=== PATIENT | male | born 1970 | race Caucasian/White ===

== ENCOUNTER 2016-05-06 05:01 | Observation (INO) | payer BC ==
[2016-05-06] MEDS ORDERED: Aspirin Low Dose CHEW TAB* 81 MG PO ONE (05:20)
[2016-05-06] MEDS ORDERED: NS 0.9% 1000 ML* 2,000 ML IV ONE (05:36)
[2016-05-06 05:47] LABS: Hematocrit 42 % (42-52); Hemoglobin 14.4 g/dl (14.0-18.0); Mean Corpuscular HGB Conc 35 g/dl (31-36); Mean Corpuscular Hemoglobin 30 pg (27-31); Mean Corpuscular Volume 86 fL (80-94); Mean Platelet Volume 9 um3 (7.4-10.4); Red Blood Count 4.86 10^6/ul (4.0-5.4); Red Cell Distribution Width 14 % (10.5-15); White Blood Count 6.1 10^3/ul (3.5-10.8)
[2016-05-06] MEDS ORDERED: Acetaminophen TAB* 325 MG PO ONE (05:47)
[2016-05-06 06:00] LABS: BUN/Creatinine Ratio 8.7 (8-20); Calcium 8.8 mg/dL (8.6-10.3); EGFR African American 100.4 (>60); EGFR Non-African American 78.1 (>60); Globulin 3.1 g/dL (2-4); Potassium 3.6 mmol/L (3.5-5.0); Total Bilirubin 0.4 mg/dL (0.2-1.0); Total Protein 7.1 g/dL (6.4-8.9)
--- NOTE | 2016-05-06 07:11 | ED ---
Gallo Murcia Aidan, scribed for Acosta Ramirez MD on 05/06/16 at 0543 . 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 According to the patient, just prior to the event, he felt nauseous, dizzy, and had a WEIR described as the feeling of a sinusitis. The next thing he could recall was waking up on the floor to his standing over him. According to his , she woke up to the sound of him hitting the floor and rushed into the bathroom where he fell. When she reached the bathroom, she found him on the ground shaking, making strange noises, vomiting, and presenting with a distorted face. While unconscious, he urinated. Associated symptoms include diffuse body aches. Currently, he still has the WEIR. Pt denies any CP, difficulty breathing, or diarrhea. He is unaware for the duration of his LOC. Lastly, he is eating and drinking normally and denies any Hx of seizures. - History Of Current Complaint Chief Complaint: EDSyncope Time Seen by Provider: 05/06/16 05:20 Hx Obtained From: Patient, Family/Information Technology Program Manager - Onset/Duration: Sudden Onset, Lasting Minutes, Resolved Timing: Intermittent Episode Lasting Context: Unwitnessed, Loss Of Consciousness Activity At Onset: Other - just about to use the bathroom Associated Head Trauma: No Aggravating Factor(s): Other - unknown Alleviating Factor(s): Other - unknown Associated Signs And Symptoms: Dizzy - during onset, Headache, Other - nausea during onset, urinary incontinence while unconscious, vomiting, distorted face while unconscious, made strange noises and was shaking while unconscious Frequency: Episodes x___ - 1 - Allergies/Home Medications Allergies/Adverse Reactions: Allergies Allergy/AdvReac Type Severity Reaction Status Date / Time peanuts Allergy Anaphylatic Uncoded 03/26/14 07:11 Shock tree nuts Allergy Anaphylatic Uncoded 03/26/14 07:11 Shock PMH/Surg Hx/FS Hx/Imm Hx Cardiovascular History: Denies: Hx Hypertension - [place] Respiratory History: Reports: Hx Asthma - hX of, no xS years, carries inhaler - Cancer History Cancer Type, Location and Year: Melanoma-12yrs ago - Surgical History Surgery Procedure, Year, and Place: 2004 RIGHT INGUINAL HERNIA REPAIR [place]. 1984 EAR TUBES [place]. 1979 TONSILLECTOMY [place] Hx Anesthesia Reactions: No Infectious Disease History: No Infectious Disease History: Denies: Traveled Outside the [place] in Last 30 Days - Family History Known Family History: Positive: Other - no FHX of seizure disorders - Social History Occupation: Employed Full-time Lives: With Family Alcohol Use: Occasionally Alcohol Amount: 2-3 DRINKS/WEEK Substance Use Type: Reports: None Smoking Status (MU): Never Smoked Tobacco Have You Smoked in the Last Year: No Review of Systems Negative: Fever, Chills, Fatigue, Skin Diaphoresis Negative: Photophobia, Blurred Vision, Diplopia, Drainage, Erythema Negative: Epistaxis, Dental Pain, Sore Throat, Ear Ache, Nasal Discharge Negative: Palpitations, Chest Pain Negative: Shortness Of Breath, Cough Positive: Vomiting, Nausea. Negative: Abdominal Pain, Diarrhea Positive: incontinence - urinary, while unconscious. Negative: see HPI, burning , dysuria, discharge, frequency, flank pain, hematuria, pain, urgency Negative: Arthralgia, Myalgia, Decreased ROM, Edema Negative: Rash, Bruising Neurological: Other - dizziness, LOC, shaking while unconscious, making strange noises while unconscious Positive: Headache, Syncope. Negative: Weakness, Paresthesia, Numbness, Slurred Speech Negative: Anxious, Depressed All Other Systems Reviewed And Are Negative: Yes Physical Exam - Summary Physical Exam Summary: Constitutional: Well-developed, Well-nourished, Alert. (-) Distressed Skin: Warm, Dry HENT: Eyes: Conjunctiva normal Neck: Musculoskeletal ROM normal neck. (-) JVD, (-) Stridor, (-) Tracheal deviation Cardio: Rhythm regular, rate normal, Heart sounds normal; Intact distal pulses ; The pedal pulses are 2+ and symmetric. Radial pulses are 2+ and symmetric. (- ) Murmur Pulmonary/Chest wall: Effort normal. (-) Respiratory distress, (-) Wheezes, (-) Rales Abd: Soft. (-) Tenderness, (-) Distension, (-) Guarding, (-) Rebound Musculoskeletal: (-) Edema Lymph: (-) Cervical adenopathy Neuro: Alert, Oriented x3, Strength normal, Cranial nerves II-XII are grossly intact. (-) Dysmetria, (-) Nystagmus, (-) Ataxia by finger to nose testing, (-) Sensory deficit. Psych: Mood and affect Normal Triage Information Reviewed: Yes Vital Signs On Initial Exam: Initial Vitals Temp Pulse Resp BP Pulse Ox 99.5 F 90 20 133/90 98 05/06/16 05:03 05/06/16 05:03 05/06/16 05:03 05/06/16 05:03 05/06/16 05:03 Vital Signs Reviewed: Yes Diagnostics - Vital Signs Vital Signs Temp Pulse Resp BP Pulse Ox 05/06/16 05:03 99.5 F 90 20 133/90 98 - Laboratory Lab Results: Lab Results 05/06/16 05/06/16 05/06/16 Range/Units 05:40 05:40 05:40 WBC 6.1 (3.5-10.8) 10^3/ul RBC 4.86 (4.0-5.4) 10^6/ul Hgb 14.4 (14.0-18.0) g/dl Hct 42 (42-52) % MCV 86 (80-94) fL MCH 30 (27-31) pg MCHC 35 (31-36) g/dl RDW 14 (10.5-15) % Plt Count 173 (150-450) 10^3/ul MPV 9 (7.4-10.4) um3 Neut % (Auto) 67.4 (38-83) % Lymph % (Auto) 17.4 L (25-47) % [place] % (Auto) 14.0 H (1-9) % Eos % (Auto) 0.5 (0-6) % Baso % (Auto) 0.7 (0-2) % Absolute Neuts (auto) 4.1 (1.5-7.7) 10^3/ul Absolute Lymphs (auto) 1.1 (1.0-4.8) 10^3/ul Absolute Monos (auto) 0.8 (0-0.8) 10^3/ul Absolute Eos (auto) 0 (0-0.6) 10^3/ul Absolute Basos (auto) 0 (0-0.2) 10^3/ul Absolute Nucleated RBC 0 10^3/ul Nucleated RBC % 0 Sodium 133 (133-145) mmol/L Potassium 3.6 (3.5-5.0) mmol/L Chloride 101 (101-111) mmol/L Carbon Dioxide 26 (22-32) mmol/L Anion Gap 6 (2-11) mmol/L BUN 9 (6-24) mg/dL Creatinine 1.03 (0.67-1.17) mg/dL Est GFR ( Amer) 100.4 (>60) Est GFR (Non-Af Amer) 78.1 (>60) BUN/Creatinine Ratio 8.7 (8-20) Glucose 109 H (70-100) mg/dL Lactic Acid 0.7 (0.5-2.0) mmol/L Calcium 8.8 (8.6-10.3) mg/dL Total Bilirubin 0.40 (0.2-1.0) mg/dL AST 36 (13-39) U/L ALT 39 (7-52) U/L Alkaline Phosphatase 47 (34-104) U/L Troponin I 0.00 (<0.04) ng/mL Total Protein 7.1 (6.4-8.9) g/dL Albumin 4.0 (3.2-5.2) g/dL Globulin 3.1 (2-4) g/dL Albumin/Globulin Ratio 1.3 (1-3) Result Diagrams: 05/06/16 05:40 05/06/16 05:40 Lab Statement: Any lab studies that have been ordered have been reviewed, and results considered in the medical decision making process. - CT BRAIN CT CT Interpretation: No Acute Changes - IMPRESSION: NO ACUTE PARANASAL ABNORMALITY. NO HEMMORRHAGE, MASS OR ACUTE TERRITORIAL INFARCT. NO SKULL FRACTURE. MUCOPERIOSTEAL THICKENING PARANASAL SINUSES. MINIMAL FLUID RIGHT MAXILLARY SINUS. VISUALIZED MASTOID AIR CELLS CLEAR. CT Interpretation Completed By: Radiologist - CORE LOADER - EKG EKG 0529 Cardiac Rate: NL - 89 BPM EKG Rhythm: Sinus Rhythm EKG Interpretation: NO STEMI, NO ECTOPY Course/Dx Course Of Treatment: D/W DR SIERRA @ 0710. PATIENT NOW FEBRILE, FLU SWAB PENDING - Diagnoses Provider Diagnoses: Syncopal seizure, Fever, Flu-like symptoms Discharge - Discharge Plan Condition: Fair Disposition: ADMITTED TO [facility] documentation as recorded by the Gallo yancey Aidan accurately reflects the service I personally performed and the decisions made by me, Acosta Ramirez MD.
--- NOTE | 2016-05-06 08:44 | RAD ---
Indication: Syncope. CT of the brain was performed without IV contrast. Ventricular structures are midline. No midline shift is noted. The extra-axial spaces are unremarkable. There is no evidence of intracranial mass or hemorrhage. No other high or low density lesions are identified. Mastoid air cells and paranasal sinuses demonstrates air-fluid level in the right maxillary sinus consistent with right sided maxillary sinusitis. Mastoid air cells are otherwise unremarkable. IMPRESSION: NO INTRACRANIAL MASS OR HEMORRHAGE IS NOTED. AIR-FLUID LEVEL IN THE RIGHT MAXILLARY SINUSES.
--- NOTE | 2016-05-06 08:45 | RAD ---
Indication: Syncope. 2 views of the chest including dual energy PA views demonstrates no mediastinal shift. Heart is of normal size and configuration. Lung sadler demonstrate no pleural fluid, pneumonia or pneumothorax. IMPRESSION: No active cardiopulmonary disease is noted.
[2016-05-06] MEDS ORDERED: Ondansetron ODT TAB* 4 MG SL PRN (08:54)
[2016-05-06] MEDS ORDERED: Acetaminophen TAB* 325 MG PO PRN (08:54)
[2016-05-06] MEDS ORDERED: Oseltamivir CAP* 75 MG PO SCH (09:00)
--- NOTE | 2016-05-06 09:08 | ADMNOTE ---
Subjective Date of Service: 05/06/16 Interval History: ADMISSION HISTORY AND PHYSICAL EXAM: Allergies Allergy/AdvReac Type Severity Reaction Status Date / Time peanuts Allergy Anaphylatic Uncoded 03/26/14 07:11 Shock tree nuts Allergy Anaphylatic Uncoded 03/26/14 07:11 Shock Home Medications Medication Instructions Recorded Confirmed Type EPINEPHrine PEN ADULT(NF) [Epipen 0.3 mg INJ SEE INSTRUCTIONS 03/16/14 03/26/14 History ADULT*] Proair Hfa 1 puff PO Q6H PRN 03/16/14 03/26/14 History HPI: Patient became ill with myalgias on 05/04, flet he had a fever. He was seen in Urgent Care 05/05 and told he had the flu . He declined oseltamivir. This AM at 4 AM he awoke to go to the BR. He urinated, then felt dizzy and nauseated. He does not remember falling. His heard him fall and ran into the BR and found him seizing and unresponsive. She started to call 911 but then the pt awoke. At first he was a little confused, thought he had fallen asleep on the floor. In a minute or two he was thinking clearly. He had emesis. She drove him here. He has had dizzy spells in the past when he was nauseous. Family History: Findings - Father had DM. 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 LOives withe his who is his SDM. Never smoked, no alcohol abuse. Past Medical History: Findings - BL HR, L artificial ear drum Review of Systems - Review of Systems Constitutional Symptoms: Negative: Weight Gain, Weight Loss, Weakness, Fatigue, Fever, Night Sweats, Unexplained Falls, Other Dermatology: Positive: Normal HEENT: Positive: Normal Eyes: Positive: Normal Thyroid: Positive: Normal Pulmonary: Positive: Normal Cardiology: Positive: Faintness, Syncope Gastroenterology: Positive: Vomiting Genital - Urinary: Positive: Normal Genitourinary - Male: Negative: Prostatism, Erectile Dysfunction, Family Hx of Prostate Cancer, Other Musculoskeletal: Negative: Joint Pain, Joint Stiffness, Arthritis, Osteoporosis, Low Back Pain , Sciatica, Joint Deformities, Kyphoscoliosis, Other Endocrinology: Positive: Normal Neurology: Positive: Normal Psychiatry: Positive: Normal Allergic/Immunologic: Negative: Hx Anaphylaxis, Hx Angioedema, Hx Environmental, Hx Seasonal, Athsma, Hx HIV, Immunocompromise, Swollen Glands LymphNodes, Other Objective Active Medications: Acetaminophen (Tylenol Tab*) 650 mg PO Q4H PRN PRN Reason: TEMP GREATER THAN 101.5 F Ondansetron HCl (Zofran Odt Tab*) 4 mg SL Q6H PRN PRN Reason: NAUSEA/VOMITING Oseltamivir Phosphate (Tamiflu Cap*) 75 mg PO BID SANJAY Stop: 05/10/16 21:01 Vital Signs 05/06/16 05/06/16 05/06/16 07:50 08:04 08:24 Temperature 100.6 F Pulse Rate 92 91 Respiratory 16 17 Rate Blood Pressure 127/82 (mmHg) O2 Sat by Pulse 97 95 Oximetry Oxygen Devices in Use Now: None Appearance: Alert, supine on ED stretcher. In good spirits. Looks comfortable. Eyes: No Scleral Icterus Ears/Nose/Mouth/Throat: Clear Oropharnyx, Mucous Membranes Moist Neck: NL Appearance and Movements; NL JVP, No Thyroid Enlargement, Masses Respiratory: Symmetrical Chest Expansion and Respiratory Effort, Clear to Auscultation, Clear to Percussion Cardiovascular: NL Sounds; No Murmurs; No JVD, RRR, No Edema, - Abdominal: NL Sounds; No Tenderness; No Distention, No Hepatosplenomegaly, - Extremities: No Edema, No Clubbing, Cyanosis, - Skin: No Rash or Ulcers, No Nodules or Sclerosis, - Neurological: Alert and Oriented x 3, NL Sensation Result Diagrams: 05/06/16 05:40 05/06/16 05:40 Additional Lab and Data: Lab Results 05/06/16 05/06/16 05/06/16 Range/Units 05:40 05:40 05:40 WBC 6.1 (3.5-10.8) 10^3/ul RBC 4.86 (4.0-5.4) 10^6/ul Hgb 14.4 (14.0-18.0) g/dl Hct 42 (42-52) % MCV 86 (80-94) fL MCH 30 (27-31) pg MCHC 35 (31-36) g/dl RDW 14 (10.5-15) % Plt Count 173 (150-450) 10^3/ul MPV 9 (7.4-10.4) um3 Neut % (Auto) 67.4 (38-83) % Lymph % (Auto) 17.4 L (25-47) % [place] % (Auto) 14.0 H (1-9) % Eos % (Auto) 0.5 (0-6) % Baso % (Auto) 0.7 (0-2) % Absolute Neuts (auto) 4.1 (1.5-7.7) 10^3/ul Absolute Lymphs (auto) 1.1 (1.0-4.8) 10^3/ul Absolute Monos (auto) 0.8 (0-0.8) 10^3/ul Absolute Eos (auto) 0 (0-0.6) 10^3/ul Absolute Basos (auto) 0 (0-0.2) 10^3/ul Absolute Nucleated RBC 0 10^3/ul Nucleated RBC % 0 Sodium 133 (133-145) mmol/L Potassium 3.6 (3.5-5.0) mmol/L Chloride 101 (101-111) mmol/L Carbon Dioxide 26 (22-32) mmol/L Anion Gap 6 (2-11) mmol/L BUN 9 (6-24) mg/dL Creatinine 1.03 (0.67-1.17) mg/dL Est GFR ( Amer) 100.4 (>60) Est GFR (Non-Af Amer) 78.1 (>60) BUN/Creatinine Ratio 8.7 (8-20) Glucose 109 H (70-100) mg/dL Lactic Acid 0.7 (0.5-2.0) mmol/L Calcium 8.8 (8.6-10.3) mg/dL Total Bilirubin 0.40 (0.2-1.0) mg/dL AST 36 (13-39) U/L ALT 39 (7-52) U/L Alkaline Phosphatase 47 (34-104) U/L Troponin I 0.00 (<0.04) ng/mL Total Protein 7.1 (6.4-8.9) g/dL Albumin 4.0 (3.2-5.2) g/dL Globulin 3.1 (2-4) g/dL Albumin/Globulin Ratio 1.3 (1-3) Microbiology and Other Data: Microbiology 05/06/16 07:49 Influenza Types A,B Antigen ([facility]) - Final Nasal Specimen received for Influenza A/B Molecular testing Assess/Plan/Problems-Billing Assessment: - Patient Problems (1) Convulsive syncope Current Visit: Yes Status: Acute Code(s): R55 - SYNCOPE AND COLLAPSE SNOMED Code(s): 029933650 Comment: Pt advised to lay down flat on the floor when he gets lightheaded, also to keep himself hydrated especially when he is ill or has a fever. (2) Influenza B Current Visit: Yes Status: Acute Code(s): J10.1 - FLU DUE TO OTH IDENT INFLUENZA VIRUS W OTH RESP MANIFEST SNOMED Code(s): 07552755 Comment: Start oseltamivir as this is his second medical encounter for this illness. Pt states in other years he got nause from oseltamivir but thinks it could as well have been nausea due to the flu.
[2016-05-06 16:46] VITALS: BP 129/81
--- NOTE | 2016-05-07 05:59 | DS ---
CC: Dr. Leeroy Borja DISCHARGE SUMMARY: DATE OF ADMISSION: DATE OF DISCHARGE: 05/06/16 HISTORY OF PRESENT ILLNESS: This 45-year-old man presented after an episode of convulsive syncope. He had been ill a couple of days with malaise and fever. He went to urgent care and was told he brandt d influenza. He was offered oseltamivir, but declined a prescription. On the day of discharge, he woke about 4 a.m. to go to the bathroom. He urinated. He then felt a little dizzy. He lost consci ousness and fell down. His heard a loud noise and ran into the bathroom and saw him convulsing on the floor. She started to call 911, but before she could, he had come around and was able to re spond to her. He was a little confused for less than a minute and then returned to his normal menta l state. He did have some emesis. On admission in the emergency room, his temperature reached a peak of 101.3. He did not look critic ally ill. The patient was admitted to a telemetry unit. He was encouraged to walk around to make sure he was not dizzy or lightheaded. I also instructed him that if he did in the future gets a lightheaded spe ll that he should lie down flat on the floor. The patient received a dose of oseltamivir in the morning of the first hospital day. The prescripti on was transmitted for 9 more tablets, 75 mg, to complete a 5- day course. FINAL DIAGNOSES: 1. Influenza B. 2. Convulsive syncope. DISCHARGE MEDICATION: Oseltamivir 75 mg b.i.d. [id number]/[facility] #: [id number]
== END 2016-05-06 17:34 | disposition home or self-care (01) ==
LOC: ED 05:01 → MEDTELE 07:09
PROVIDERS: ADMIT Internal Medicine; ATTEND Internal Medicine
DX: J10.1 Influenza due to other identified influenza virus with other respiratory manifestations (principal); R55 Syncope and collapse; R94.31 Abnormal electrocardiogram [ECG] [EKG]
CPT/HCPCS: 36415; 70450; 71010; 80053; 83605; 84484; 85025; 87040; 87502; 93005; 96360; 99283; A9270-GY; G0378

== ENCOUNTER 2016-05-11 19:18 | Emergency (ER) | payer BC ==
[2016-05-11] MEDS ORDERED: Morphine INJ* 4 MG/ML 1 ML SYRINGE IV ONE (20:20)
[2016-05-11] MEDS ORDERED: Ketorolac INJ* 30 MG/ML 1 ML VIAL IV PUSH ONE (20:20)
[2016-05-11] MEDS ORDERED: NS 0.9% 1000 ML* 2,000 ML IV ONE (20:20)
[2016-05-11 20:21] LABS: Urine Bacteria Absent (Absent); Urine Bilirubin Negative (Negative); Urine Glucose Negative (Negative); Urine Nitrite Negative (Negative)
[2016-05-11 20:50] LABS: Hematocrit 40 % (42-52); Hemoglobin 13.6 g/dl (14.0-18.0); Mean Corpuscular HGB Conc 34 g/dl (31-36); Mean Corpuscular Hemoglobin 29 pg (27-31); Mean Corpuscular Volume 86 fL (80-94); Mean Platelet Volume 8 um3 (7.4-10.4); Red Blood Count 4.66 10^6/ul (4.0-5.4); Red Cell Distribution Width 13 % (10.5-15); White Blood Count 10.2 10^3/ul (3.5-10.8)
[2016-05-11 21:03] LABS: Albumin 4.1 g/dL (3.2-5.2); BUN/Creatinine Ratio 12.8 (8-20); Calcium 9.2 mg/dL (8.6-10.3); EGFR African American 123.7 (>60); EGFR Non-African American 96.2 (>60); Globulin 3.5 g/dL (2-4); Potassium 3.5 mmol/L (3.5-5.0); Total Bilirubin 0.8 mg/dL (0.2-1.0); Total Protein 7.6 g/dL (6.4-8.9)
--- NOTE | 2016-05-11 21:45 | RAD ---
Indication: Right-sided flank pain. Single view of the chest demonstrates some bibasal atelectasis. No alveolar consolidation is noted. When compared to previous exam of May 06, 2016 this is new. IMPRESSION: Bibasilar atelectasis.
--- NOTE | 2016-05-11 21:47 | RAD ---
Indication: Constipation. Flat and upright views of the abdomen demonstrates stool throughout the colon. No free air is identified. No dilated loops of bowel are noted. IMPRESSION: NO FREE AIR OR OBSTRUCTION IS NOTED. THERE MAY BE SOME FECAL STASIS IN THE RIGHT COLON.
--- NOTE | 2016-05-11 22:53 | RAD ---
Indication: Right upper quadrant pain, right flank pain. Real-time sonography of the right upper quadrant was performed. The liver measures 15.3 cm in length. There is a hyperechoic mass in the left lobe of liver just under the surface measuring 17 x 17 x 12 mm. This may represent a hemangioma. No other focal lesions or intrahepatic ductal dilatation is noted. The gallbladder demonstrates no calcified gallstones. No pericholecystic fluid or wall thickening is identified. The common duct measures 3 mm. Right kidney measures 11.4 x 4.4 x 4.9 cm. The left kidney measures 12.1 x 6.1 x 4.7 cm. A cyst is noted in the upper pole of the left kidney measuring 6 x 7 x 7 mm. Pancreatic head, neck and proximal body demonstrates no mass or pancreatic duct dilatation. Aorta and inferior vena cava are unremarkable. Spleen is normal in size measuring up to 9.4 cm in length. IMPRESSION: No evidence of cholelithiasis or biliary duct dilatation. Hyperechoic lesion left lobe of liver measuring 17 x 17 x 12 mm likely representing hemangioma. 7 mm cyst upper pole left kidney.
[2016-05-12] MEDS ORDERED: Iohexol 350* (CONTRAST) 500 ML MDV IV ONE (00:44)
[2016-05-12] MEDS ORDERED: Rivaroxaban TAB(*) 15 MG PO ONE (01:37)
[2016-05-12 02:03] VITALS: BP 132/61
--- NOTE | 2016-05-12 07:59 | RAD ---
INDICATION: Pleuritic chest pain evaluate for pulmonary embolism. COMPARISON: Comparison is made with a prior chest x-ray study from May 11, 2016. TECHNIQUE: A CT angiogram of the chest was performed with intravenous following intravenous injection of 75 ml of Omnipaque 350 nonionic contrast. Contiguous axial sections were obtained from the lung apices through the lung bases. Images were reconstructed in the coronal and sagittal planes. FINDINGS: There are intraluminal filling defects seen in the right posterior basilar segmental artery and subsegmental artery branch consistent with pulmonary emboli no other emboli are seen. The heart is within normal limits in size. No pericardial effusion is present. The thoracic aorta is normal in caliber and demonstrates homogeneous contrast opacification. No significant enlarged mediastinal or hilar lymph nodes are seen. There are mild dependent bilateral lower lobe infiltrates most consistent with atelectasis. There is a more focal area of decreased density present in the region of the right basilar segmental artery embolus most consistent with a small infarct. There is a trace right pleural effusion. There is mild bilateral gynecomastia. No significant focal osseous normality is seen. IMPRESSION: 1. RIGHT LOWER LOBE PULMONARY EMBOLI DESCRIBED AND PROBABLE SMALL PULMONARY INFARCT. 2. DEPENDENT BILATERAL LOWER LOBE SUBSEGMENTAL ATELECTASIS AND TRACE RIGHT PLEURAL EFFUSION.
--- NOTE | 2016-05-13 15:13 | ED ---
Jazmín Murcia Alok, scribed for Acosta Rmairez MD on 05/11/16 at 2031 . Abdominal Pain/Male - HPI Summary HPI Summary: 45 y/o male presents to the ED for right sided flank pain as of two day ago. Pt was last admitted to the hospital 5 days ago for influenza. Pt states that his flank pain radiates through his chest to right shoulder and has been worsening today, aggravated by laying on his right side as well as when laying flat. Pt pain is at a 3 out of 10 in severity when sitting up right but at a 10 out of 10 when in supine position Pt adds swelling around his flank as well as SOB and dyspnea aggravated by deep breaths. Pt denies any fever, diaphoresis, or chills. Pt also denies any N/V. Pt has a hx of nephrolithiasis but states that this pain does not feel like previous nephrolithiasis. Pt has not had any BM for the last two days which is unusual for him, and hasn't ingested anything today. No other pertinent medical information at this time. - History of Current Complaint Chief Complaint: EDFlankPain Stated Complaint: RT SIDE FLANK/ABD PAIN Time Seen by Provider: 05/11/16 20:12 Hx Obtained From: Patient Onset/Duration: Gradual Onset, Lasting Days, Still Present Timing: Constant, Lasting Days Severity Initially: Moderate Severity Currently: Moderate Pain Intensity: 3 - 3 when upright, 10 when supine position Pain Scale Used: 0-10 Numeric Location: Other - Right flank Radiates: Yes Radiates to: Chest, Other - Right shoulder Character: Sharp Aggravating Factor(s): Deep Breaths, Other: - Supine position Alleviating Factor(s): Position - Up right position Associated Signs And Symptoms: Negative: Diaphoresis, Fever, Nausea, Vomiting - Allergies/Home Medications Allergies/Adverse Reactions: Allergies Allergy/AdvReac Type Severity Reaction Status Date / Time peanuts Allergy Anaphylatic Uncoded 03/26/14 07:11 Shock tree nuts Allergy Anaphylatic Uncoded 03/26/14 07:11 Shock PMH/Surg Hx/FS Hx/Imm Hx Cardiovascular History: Denies: Hx Hypertension - [place] Respiratory History: Reports: Hx Asthma Musculoskeletal History: Denies: Hx Arthritis, Hx Osteoporosis Neurological History: Reports: Other Neuro Impairments/Disorders - syncopal episode - Cancer History Cancer Type, Location and Year: Melanoma-12yrs ago - Surgical History Surgery Procedure, Year, and Place: 2005 RIGHT INGUINAL HERNIA REPAIR [place]. 1985 EAR TUBES [place]. 1980 TONSILLECTOMY [place] Hx Anesthesia Reactions: No Infectious Disease History: Yes Infectious Disease History: Denies: Traveled Outside the [place] in Last 30 Days - Family History Known Family History: Positive: Other - no FHX of seizure disorders - Social History Lives: With Family - Domestic partner (female) Alcohol Use: Occasionally Alcohol Amount: 2-3 DRINKS/WEEK Substance Use Type: Reports: None Smoking Status (MU): Never Smoked Tobacco Have You Smoked in the Last Year: No Review of Systems Negative: Fever, Chills, Skin Diaphoresis Negative: Erythema Negative: Sore Throat Positive: Chest Pain Positive: Shortness Of Breath. Negative: Cough Positive: Abdominal Pain - Right Flank. Negative: Vomiting, Nausea Negative: dysuria, hematuria Negative: Myalgia, Edema Negative: Rash Neurological: Other - Negative: Dizziness All Other Systems Reviewed And Are Negative: Yes Physical Exam - Summary Physical Exam Summary: Constitutional: Well-developed, Well-nourished, Alert. (-) Distressed Skin: Warm, Dry HENT: Normocephalic; Atraumatic Eyes: Conjunctiva normal Neck: Musculoskeletal ROM normal neck. (-) JVD, (-) Stridor, (-) Tracheal deviation Cardio: Rhythm regular, rate normal, Heart sounds normal; Intact distal pulses; The pedal pulses are 2+ and symmetric. Radial pulses are 2+ and symmetric. (-) Murmur Pulmonary/Chest wall: Effort normal. (-) Respiratory distress, (-) Wheezes, (-) Rales Abd: Soft, RUQ tenderness, Right CVA tenderness, (-) Distension, (-) Guarding, (-) Rebound Musculoskeletal: (-) Edema Lymph: (-) Cervical adenopathy Neuro: Alert, Oriented x3 Psych: Mood and affect Normal Triage Information Reviewed: Yes Vital Signs On Initial Exam: Initial Vitals Temp Pulse Resp BP Pulse Ox 99 F 89 18 144/91 98 05/11/16 19:24 05/11/16 19:24 05/11/16 19:24 05/11/16 19:24 05/11/16 19:24 Vital Signs Reviewed: Yes Diagnostics - Vital Signs Vital Signs Temp Pulse Resp BP Pulse Ox 05/11/16 19:24 99 F 89 18 144/91 98 - Laboratory Result Diagrams: 05/11/16 20:40 05/11/16 20:40 Lab Statement: Any lab studies that have been ordered have been reviewed, and results considered in the medical decision making process. - Radiology CXR Xray Interpretation: Positive (See Comments) - IMPRESSION: Bibasilar atelectasis. Radiology Interpretation Completed By: Radiologist Abd XRAY Xray Interpretation: Positive (See Comments) - IMPRESSION: NO FREE AIR OR OBSTRUCTION IS NOTED. THERE MAY BE SOME FECAL STASIS IN THE RIGHT COLON. Radiology Interpretation Completed By: Radiologist - CT CTA Chest CT Interpretation: Positive (See Comments) - IMPRESSION: Positive for pulmonary embolism in the right basilar posterior segmental artery with small area of infarct noted within the dependent atelectasis CT Interpretation Completed By: Radiologist - Additional Comments Diagnostic Additional Comments: Abd US - IMPRESSION: No evidence of cholelithiasis or biliary duct dilatation. Hyperechoic lesion left lobe of liver measuring 17 x 17 x 12 mm likely representing hemangioma. 7 mm cyst upper pole left kidney. Re-Evaluation - Re-Evaluation First Eval Re-Evaluation Time: 01:35 Abdominal Pain Fem Course/Dx - Course Course Of Treatment: Discussed bleeding risk with blood thinner. Pt declined admit for PE. - Diagnoses Provider Diagnoses: Pulmonary embolism, Renal cyst, Constipated Discharge - Discharge Plan Condition: Stable Disposition: HOME Prescriptions: Docusate CAP* [Colace Cap*] 100 mg PO BID #20 cap Rivaroxaban TAB(*) [Xarelto 15 mg(*)] 15 mg PO BID #42 tab Patient Education Materials: Pulmonary Embolism (GEN), Kidney Cyst (ED), Constipation (ED) Referrals: Leeroy Borja MD [Primary Care Provider] - 3 Days The documentation as recorded by the Jazmín yancey Alok accurately reflects the service I personally performed and the decisions made by me, Acosta Ramirez MD.
== END 2016-05-12 02:01 | disposition home or self-care (01) ==
LOC: ED 19:18
DX: I26.99 Other pulmonary embolism without acute cor pulmonale (principal); N28.1 Cyst of kidney, acquired; K59.00 Constipation, unspecified; R10.84 Generalized abdominal pain; R07.9 Chest pain, unspecified; R06.02 Shortness of breath
CPT/HCPCS: 36415; 71010; 71275; 74000; 76700; 80053; 81003; 81015; 83690; 85025; 85379; 96374; 96375; 99283; J1885; J2270; Q9967

== ENCOUNTER 2019-04-30 22:30 | Emergency (ER) | payer BC ==
--- OUTSIDE RECORDS SUMMARY | 2019-04-30 22:45 | XMS REPORT | Continuity of Care Document ---
:1970 Author Organization 0001 - [facility] Address [address] [place] [address] Phone Care Team Providers Name Role Phone MALACHI GARCIA MD Unavailable Unavailable Allergies, Adverse Reactions, Alerts Substance Reaction Status peanut Anaphylaxis (severe) Active WARNIN allergy(ies) could not be collected because the type is not supported. Please contact [facility] for further details. Medications Medication Instructions Dosage Effective Dates Status Comments (start - stop) Cialis 10 mg tablet take 1 tablet by - Active oral route in the day prior to desired effect. ofloxacin 0.3 % ear instill 3 drop by 0.45 MG - Active drops Otic route 2 times every day into affected ear(s) albuterol sulfate inhale 2 puff by 2 puff - Active HFA 90 Inhalation route mcg/actuation every 4 - 6 hours as aerosol inhaler needed EpiPen 2-Vincent 0.3 inject 0.3 0.3 MG - Active mg/0.3 mL milliliter by injection, intramuscular route auto-injector once as needed for anaphylaxis Cialis 10 mg tablet take 1 tablet by - No Longer oral route in the Active day prior to desired effect. Flovent HFA 110 inhale 2 puff by 220 MCG - No Longer mcg/actuation INHALATION route Active aerosol inhaler every day during periods when asthma is present. atorvastatin 20 mg take 1 tablet by 20 MG - No Longer tablet ORAL route every Active day Problems Condition Effective Dates (start - stop) Clinical Status Bilateral impacted cerumen Mixed hyperlipidemia Vitamin D deficiency Elevated blood-pressure reading, w/o - diagnosis of htn Allergic rhinitis, unspecified Mild intermittent asthma with acute exacerbation Elevated blood-pressure reading, without diagnosis of hypertension Mixed hyperlipidemia Other acute pulmonary embolism without acute cor pulmonale Other acute pulmonary embolism without acute cor pulmonale Mixed hyperlipidemia Examination, routine medical Elevated blood pressure reading Mixed hyperlipidemia Thyroid abnormality Left inguinal hernia Elevated blood pressure reading Mixed hyperlipidemia Erectile dysfunction Influenza Vaccine - Mixed hyperlipidemia Current use of a medication Erectile dysfunction Elevated blood pressure reading Vitamin D deficiency Allergic rhinitis Impetigo - Rhinitis, allergic NOS - Sinusitis, acute maxillary Sinusitis, acute maxillary - Impetigo Chronic Procedures Procedure Date Venpnctr fngr/heel/ear stick routne Office/outpatient visit,est, mod Results Test Name Date and Time Measure Units Reference Range Abnormal Flag Status Comments Panel Description: Comprehensive metabolic 2000 panel - Serum or Plasma Final SODIUM 10:18:00 141 MMOL/L 135-146 N Final POTASSIUM 10:18:00 4.9 MMOL/L 3.5-5.3 N Final CHLORIDE 10:18:00 104 MMOL/L 98-107 N Final CARBON DIOXIDE 10:18:00 27 MMOL/L 21-32 N Final ANION GAP 10:18:00 10 5-15 N Final GLUCOSE 10:18:00 91 MG/DL 65-99 N Final Reference Ranges: Normal Fasting Glucose ........65-99 MG/DL Pre-Diabetes ......100-125 MG/DL Provisional Diagnosis of Diabetes .........>125 MG/DL

BUN 10:18:00 18 MG/DL 7-23 N Final CREATININE 10:18:00 1.0 MG/DL 0.5-1.2 N Final BUN/CREAT RATIO 10:18:00 18 Final CALCIUM 10:18:00 10.3 MG/DL 8.4-10.4 N Final TOTAL PROTEIN 10:18:00 8.0 G/DL 6.3-8.2 N Final ALBUMIN 10:18:00 4.6 G/DL 3.5-5.0 N Final ALB/GLOB RATIO 10:18:00 1.4 1.1-1.8 N Final BILIRUBIN, TOTAL 10:18:00 0.7 MG/DL 0.0-1.3 N Final ALK PHOSPHATASE 10:18:00 45 IU/L 38-126 N Final AST (SGOT) 10:18:00 31 IU/L N Final <59

ALT (SGPT) 10:18:00 33 IU/L 0-49 N Final Reference Range:Females <35Males <50

Panel Description: LIPID Final CHOLESTEROL 272 MG/DL A Final <200 Cholesterol 10:18:00 Ranges: Desirable <200 MG/DL Borderline High 200-239 MG/DL High >239 MG/DL ...............................

TRIGLYCERIDE 206 MG/DL H Final <200

S 10:18:00 HDL 43 MG/DL N Final >40

10:18:00 LDL 187. MG/DL < Final 10:18:00 8 1 0 0 RISK 6.3 Final CHD RISK FACTOR VS CHOLESTEROL/HDL RATIO 10:18:00 RELATIVE TOTAL CHOL/HDL RATIO RISK FOR CHD MALE FEMALE 0.[address] CHD 3.4 3.3 AVERAGE 4.9 4.4 2 X AVERAGE 9.6 7.0 3 X AVERAGE 24.0 11.0

Panel Description: LIPID Final NON-HDL 229 MG/DL 60-100 H Final LDL Non-HDLCHigh Risk CHOLESTEROL 10:18:00 <100 <130(Optional for Very High Risk) (<70) (<100)Moderate Risk <130 <160(Optional for Moderately High Risk) (<100) (<130)Low Risk <160 <190 For assesment of risk for ischemic heart disease, please visit www.nhlbi.nih.gov

Panel Description: Estimated or measured glomerular filtration rate less than Final 50 percent [Reported] EGFR - NON- >60 sq. meters N Final >60 mL/min/1.73
<br/ > 10:18:00 IVORIAN EGFR - >60 sq. meters N Final >60 mL/min/1.73 Potential IVORIAN 10:18:00 Chronic Kidney Disease: <60ml/min/1.73sq meters Kidney Failure: <15ml/min/1.73sq meters

Panel Description: Cobalamin (Vitamin B12) [Moles/volume] in Serum or Plasma Final VITAMIN D 30 ng/ml Final Deficient (25-HYDROXY) 10:18:00 <20ng/ml Insufficient 20-<30ng/ml Sufficient 30-100ng/ml Potential Toxicity >100ng/ml

Encounters Encounter Practice Location Reason(s) Diagnoses Date Provider Providers Description For Visit Copied on Encounter 0001 - S Feb- [employer], Primary MALACHI. 3357 Care [address] [facility] [address], [facility], [facility], tel:[phone] tel:[phone] 0001 - S Feb-0 [employer], Primary MALACHI. 33-57 Care [address] [facility] [address], [facility], [facility], tel:[phone] tel:[phone] Office/outpa 0001 - S Ear Bilateral impacted Feb- Thumb Reading tient [employer], Primary discomfort cerumenMixed MALACHI. visit,est, Care (chief hyperlipidemiaVitami 0 [facility] Richi [place] complaint) n D [address] [facility], [place] [facility] blood-pressure [place], [place], reading, w/o [place], [address], [place] diagnosis of htn [place], tel: [phone] tel: [phone] 0001 - S Jan- [employer] [employer], Primary 6-201 MAL[facility]I. [facility] [place] [address] [facility], [place], [place], [address], [place], tel: [phone] tel: [phone] 0001 - S Allergic rhinitis, Sep- [employer] [facility] [employer], Primary unspecifiedMild 0-201 MALACHI. Care intermittent asthma 9 [facility] with acute 119 [facility] blood-pressure [place], [place], reading, without [place], [address], [place] diagnosis of [place], tel: hypertensionMixed [phone] hyperlipidemia tel: [phone] 0001 - [facility] Aug-2 [facility] [employer], Primary 9- MALACHI. Care 9 S Richi [place] [address] [facility], [place], [place], [address], [place], tel: [phone] tel: [phone] 0001 - S Jan- [employer], Primary - MALACHI. Care 7 [facility] [place] [address] [facility], [place], [place], [address], [place], tel: [phone] tel: [phone] 0001 - [facility] Other acute June- [employer] [facility] [employer], Primary pulmonary embolism MALACHI. Care without acute cor 7 [facility] pulmonale [address] [facility], [facility], [place], [place], [place], [address], [place], tel: [phone] tel: [phone] 0001 - [facility] Other acute Mar-2 [facility], Primary pulmonary embolism 4-201 MALACHI. 33-57 Care without acute cor 7 [facility] pulmonale [address] [place] [address], [place], [address], [place], tel:[phone] tel: [phone] 0001 - [facility] Nov-0 [facility], Primary 4-201 MALACHI. 33-57 Care [address], [place], [address], [place], tel: [phone] tel: [phone] 0001 - [facility] June-1 [facility], Primary 2-201 MALACHI. 33-57 Care [address], [place], [address], [place], tel: [phone] tel: [phone] 0001 - [facility] Bajleet-1 [facility], Primary 2-201 MALACHI. 33-57 Care [address], [place], [address], [place], tel:[phone] tel: [phone] 0001 - [facility] Oct-2 [employer] [employer] [facility] [employer], Primary 3-201 MALACHI. 33-57 Care [address], [place], [address], [place], tel: [phone] tel: [phone] 0001 - [facility] Mixed hyperlipidemia Chance-1 LORD ANTONIO. [facility] Inc, Primary 2-201 [facility] [address] [place] [address], [place], [address]. [address], [place] tel: tel: [phone] 0001 - S Examination, routine Jul-0 [employer], Primary medicalElevated 5-201 MALACHI. 33-57 Care blood pressure 5 [facility] readingMixed [address] [place] [address] hyperlipidemiaThyroi [place], [place], [place], [address], [place], tel: [phone] tel: [phone] 0001 - [facility] Left inguinal hernia Feb- [facility], Primary 4-201 MALACHI. 33-[address], [place], [place], [place], [address], [place], tel: [phone] tel: [phone] 0001 - [facility] Elevated blood Nov- [facility] Inc, Primary pressure 4-201 MALACHI. 33-57 Care readingMixed 4 [facility] hyperlipidemiaErecti [address] [place] [address] le [place], [place], [place], [address], [place], tel: [phone] tel: [phone] 0001 - [facility] Influenza Vaccine Sep-2 N. [employer]IO[employer] S Inc, Primary 6-201 NURSE. . 33-57 Care 4 [place], [address], [place] tel: [phone] 0001 - S Mixed Sep- [facility], Primary hyperlipidemiaCurren 3-201 MALACHI. 33-57 Care t use of a 4 [facility] [place] medication [address] [place] [address], [place], [address], [place], tel: [phone] tel: [phone] 0001 - S Erectile Aug- [facility] Referring [facility] Inc, Primary dysfunctionElevated 8201 MALACHI. Provider: 33-57 Care blood pressure 4 [facility] MALACHI St[place]ard [place] readingVitamin D [address] [place] [address], [facility] [address], [address], [place], [place], [facility] [address], [place], [place], tel: [phone]. [place], [phone]. [phone] tel: tel: [phone] [facility] - [facility] ImpetigoAllergic Nov- SK[facility] Referring [facility] Inc, Primary rhinitisImpetigoRhin MALACHI. Provider: 33-57 Care itis, allergic NOS 1 [facility] MALACHI [facility] [address], [facility], [facility], [facility], [place], [place], [facility] [address], [facility], tel: [phone]. [place], [phone]. [phone] tel: tel: [phone] [address] [place] [address] Sinusitis, acute Aug- LORD ANTONIO. [facility] Inc, Primary maxillarySinusitis, 6-201 [facility] 119 33-57 Care acute maxillary 1 [facility], [place], [address]. [address], tel: tel: [phone] Family History Family Member Diagnosis Age At Onset Mother Hyperthyroidism Father Hyperlipidemia Father Diabetes mellitus Brother Hypertension Mother Osteoporosis Mother Cancer, uterine 73 Father Hypertension Brother Obesity Immunizations Vaccine Date Status Comments Influenza, injectable, administered Source: New Immunization quadrivalent, preservative Record free, split virus Influenza, injectable, administered Source: New Immunization quadrivalent, preservative Record free, split virus [id number] Influenza, injectable, administered Source: New Immunization quadrivalent, preservative Record free, split virus 3 years or older, Fluarix Quad Fluarix, Flulaval, or Flluzone administered Source: New Immunization Quad Record Td (adult) preservative free administered Source: New Immunization Record Fluarix Quadrivalent Syringe administered Source: Source Unspecified flu (split) (3 yrs or older) administered Note: Abstracted:09/13 ; Source: New Immunization Record flu (split) (3 yrs or older) administered Note: Abstracted:09/13 ; Source: New Immunization Record flu (split) (3 yrs or older) administered Note: Abstracted:09/13 ; Source: New Immunization Record DTP administered Note: Abstracted:09/13/2010 ; Source: New Immunization Record flu (split) (3 yrs or older) administered Note: Abstracted:09/13 ; Source: New Immunization Record DTP administered Note: Abstracted:09/13/2010 ; Source: New Immunization Record Payers Payer name Insurance type Covered green party ID Authorization(s) [facility] [id number] [employer] [facility] [id number] [employer] [facility] [id number] [facility] [id number] [facility] [id number] [facility] [id number] Social History Type Description Quantity Date Captured Comments Alcohol Use Details Caffeine Use Details coffee 1 cup per day Tobacco Use Status Unknown Smoking Status Never smoker Non-Smoking Tobacco : No Details Available : No Details Available 2019 Use Details Vital Signs Date / Height Weight BMI Pulse Blood Temperature Respiratory Body Head BMI Time: Rate Pressure Rate Surface Circumference percentile Area 69.00 200.40 29.5 90 130/90 98.40 F 12 /min 2.2020 in lbs 9 /min mm[Hg] meter(2) 9:08 kg/m AM eter (2) Chief Complaint And Reason For Visit No information Reason For Referral Reason For Referral Unknown Plan Of Care Date Type Action Status Referral Referred To: ordered SHELLEY WALDRON [address] [place], [address] [phone] Ordered: SHELLEY WALDRON. Genrl Surg. Consult and treat. Appointment date/timeframe: 03/06/2014 Date Type Problem Goal Intervention Status Start Date Unknown History Of Present Illness Encounter Date Complaint History Of Present Illness Ear discomfort The patient states the ear discomfort is in both ears. The problem is worse. Context: history of ear surgeries as a child. Denies relieving factors. Associated symptoms include ear pressure, hearing deficit and ringing in ears. Additional information: history of cerumen impactions. He has put mineral oil in ear to soften the wax. Functional Status Encounter Date Functional Assessment Cognitive Assessment Unknown Medications Administered Medication Instructions Dosage Effective Dates (start - stop) Status Comments Drug Treatment Unknown Instructions Date Instruction Additional Information Will recheck lipid pofile Related to Mixed hyperlipidemia /will check CMP and monitor BPs Related to Elevated blood- pressure reading, w/o diagnosis of htn Continue xyzal and use fluticasone Related to Allergic rhinitis, nasal spray if it bercomes more unspecified severe. continue to monitor Related to Elevated blood-pressure reading, without diagnosis of hypertension Will re candido gonsales lipid profile now Related to Mixed hyperlipidemia that he is on a different diet. Risks and benefits of new Related to Mild intermittent asthma medication discussed. start inhaled with acute exacerbation fluticasonhe through the allergy season. Will continue xarelto until Related to Other acute pulmonary Jayla. embolism without acute cor pulmonale At the conclusion of the current Related to Other acute pulmonary prescription , start xarelto 20mg embolism without acute cor pulmonale once daily. We will continue that for 5 months. Risks and benefits of new medication discussed. Patient verbalized understanding Monitor and record readings out of Related to Elevated blood pressure the office. reading start cialis Related to Erectile dysfunction Continue atorvastatin Related to Mixed hyperlipidemia Willhave labs done. Related to Vitamin D deficiency Monitor blood pressures at the Related to Elevated blood pressure pharmacy and elsewhere. reading Will review labs. Monitor blood Related to Erectile dysfunction pressure.
--- OUTSIDE RECORDS SUMMARY | 2019-04-30 22:45 | XMS REPORT | Continuity of Care Document ---
:1970 Author Organization 0001 - S [facility] Address [address] [place] [address] Phone Care Team Providers Name Role Phone MALACHI GARCIA MD Unavailable Unavailable Allergies, Adverse Reactions, Alerts Substance Reaction Status peanut Anaphylaxis (severe) Active WARNIN allergy(ies) could not be collected because the type is not supported. Please contact [facility] practice for further details. Medications Medication Instructions Dosage Effective Dates Status Comments (start - stop) Cialis 10 mg take 1 tablet by oral - Active tablet route in the day prior to desired effect. ofloxacin 0.3 % instill 3 drop by 0.45 MG - Active ear drops Otic route 2 times every day into affected ear(s) albuterol sulfate inhale 2 puff by 2 puff - Active HFA 90 Inhalation route mcg/actuation every 4 - 6 hours as aerosol inhaler needed EpiPen 2-Vincent 0.3 inject 0.3 milliliter 0.3 MG - Active mg/0.3 mL by intramuscular injection, route once as needed auto-injector for anaphylaxis Cialis 10 mg take 1 tablet by oral - No Longer tablet route in the day Active prior to desired effect. Problems Condition Effective Dates (start - stop) [...] maxillary - Impetigo Chronic Procedures Procedure Date Procedure Unknown Results Test Name Date and Time Measure Units Reference Range Abnormal Flag Status Comments Unknown Encounters Encounter Practice Location Reason(s) Diagnoses Date Provider Providers Description For Visit Copied on Encounter 0001 - S Feb-2 [employer], Primary MALACHI. [address]357 Care [address] [facility] [address], [place], [address], [facility], tel: [phone] tel: [phone] 0001 - [facility] Baljeet-0 [employer], Primary MALACHI. 3357 Care [address] [facility] [address], [place], [address], [place], tel: [phone] tel: [phone] 2019 - S Bilateral impacted Feb-0 [employer], Primary cerumenMixed MALACHI. 3357 Care hyperlipidemiaVitamin 0 [facility] D deficiencyElevated [address] [place] [address] blood-pressure [facility], w/o [place], [place], diagnosis of htn [facility] [address], [facility], tel: [phone] tel: [phone] 2019 - S Jan-1 [employer], Primary 6 MALACHI. 33-57 Care [address], [place], [address], [facility], tel: [phone] tel: [phone] 0001 - [facility] Allergic rhinitis, Sep-3 [employer], Primary unspecifiedMild 0-201 MALACHI. 3357 Care intermittent asthma 9 [facility] with acute [address] [place] [address] exacerbationElevated [facility] blood-pressure [place], [place], reading, without [place], [address], [place] diagnosis of [place], tel: hypertensionMixed [phone]. [phone] hyperlipidemia tel: [phone] 0001 - [facility] Aug-2 [facility] Inc, Primary 9-201 MALACHI. 33-57 Care [address], [place], [place], [place], [address], [place], tel: [phone] tel: [phone] 0001 - [facility] Dec-1 [facility] [facility], Primary 1-201 MALACHI. 33-57 Care [address], [facility], [place], [place], [place], [address], [place], tel: [phone] tel: [phone] 0001 - [facility] Other acute pulmonary May-1 [facility], Primary embolism without 5-201 MALACHI. 33-57 Care acute cor pulmonale [address], [place], [place], [address], [place], tel: [phone] tel: [phone] 0001 - [facility] Other acute pulmonary Mar-2 [facility] [facility], Primary embolism without 4-201 MALACHI. 33-57 Care acute cor pulmonale [address], [place], [place], [address], [place], tel: [phone]. [phone] tel: [phone] 0001 - [facility] Nov-0 [employer] [facility], Primary 4-201 MALACHI. 33-57 Care [address], [place], [address], [place], tel: [phone] tel: [phone] 0001 - [facility] May-1 [facility] [facility], Primary 2-201 MALACHI. 33-57 Care [address], [place], [address], [place], tel:+ [phone] tel: [phone] 0001 - S Oct-2 [facility] Inc, Primary 3-201 MALACHI. 33-57 Care [address], [place], [address], [place], tel: [phone] tel: [phone] 0001 - S Mixed hyperlipidemia Chance-1 LORD ANTONIO. S Inc, Primary 2-201 [facility] 119 33-57 Care 5 [place], [address]. [address], [place] tel: tel: [phone] 0001 - [facility] Examination, routine Chance-0 [facility] Inc, Primary medicalElevated blood 5-201 MALACHI. 33-57 Care pressure readingMixed 5 [facility] hyperlipidemiaThyroid [address] [place] [address], [place], [address], [place], tel: [phone]. [phone] tel: [phone] 0001 - S Left inguinal hernia Baljeet- [facility] [employer], Primary 4-201 MALACHI. 33-57 Care [address], [place], [address], [place], tel: [phone]. [phone] tel: [phone] 0001 - [facility] Elevated blood Nov-1 [facility] [employer], Primary pressure readingMixed 4-201 MALACHI. 33-57 Care hyperlipidemiaErectil 4 [facility] e dysfunction [address] [place] [address], [place], [address], [place], tel: [phone]. [phone] tel: [phone] 0001 - [facility] Influenza Vaccine Sep-2 N. TIOGA S Inc, Primary 6-201 NURSE. . 33-57 Care 4 [place], [address], tel: [phone] 0001 - [facility] Mixed SKIFF [facility] Inc, Primary hyperlipidemiaCurrent MALACHI. 33-57 Care use of a medication 4 [facility] Richi [address], [facility], [place], [place], [facility] [address], [facility], tel: [phone] tel: [phone] 0001 - [facility] Erectile SKI Referring [facility] Inc, Primary dysfunctionElevated MALACHI. Provider: 33-57 Care blood pressure 4 [facility] MALACHI [facility] readingVitamin D [address] [place] [address], [address], [place] [address], [facility], tel: [phone], [phone]. [phone] tel: tel: [phone] 0001 - [facility] ImpetigoAllergic SKIFF Referring [facility], Primary rhinitisImpetigoRhini MALACHI. Provider: 33-57 Care tis, allergic NOS 1 [facility] MALACHI [address], [facility], [address], [place] [address], [facility], tel: [phone]. [place], [phone]. [phone] tel: tel: [phone] 2019 - [facility] Sinusitis, acute LORD ANTONIO. [facility] Inc, Primary maxillarySinusitis, [facility] 119 33-57 Care acute maxillary 1 [place], [address]. [address], [place] tel: tel: [phone] Family History Family Member Diagnosis Age At Onset Mother Hyperthyroidism Father Hyperlipidemia Father Diabetes mellitus Brother Hypertension Mother Osteoporosis Mother Cancer, uterine 73 Father Hypertension Brother Obesity Immunizations Vaccine Date Status Comments Influenza, injectable, administered Source: New Immunization quadrivalent, preservative Record free, split virus Influenza, injectable, administered Source: New Immunization quadrivalent, preservative Record free, split virus [id number] Influenza, injectable, administered Source: New Immunization quadrivalent, [...] Record Payers Payer name Insurance type Covered libertarian ID Authorization(s) [facility] [id number] [facility] [id number] [facility] [id number] [facility] [id number] [facility] [id number] [facility] [id number] Social History Type Description Quantity Date Captured Comments Alcohol Use Details Unknown Caffeine Use Details Unknown Tobacco Use Status Unknown Smoking Status Unknown Vital Signs Date / Height Weight BMI Pulse Blood Temperature Respiratory Body Head BMI Time: Rate Pressure Rate Surface Circumference percentile Area Unknown Chief Complaint And Reason For Visit No information Reason For Referral Reason For Referral Unknown Plan Of Care Date Type Action Status Referral Referred To: SHELLEY Kaur [address] [place], [address] [phone] Ordered: SHELLEY WALDRON. Genrl Surg. Consult and treat. Appointment date/timeframe: 03/06/2014 Date Type Problem Goal Intervention Status Start Date Unknown History Of Present Illness Encounter Date Complaint History Of Present Illness No information Functional Status Encounter Date Functional Assessment Cognitive [...] reading, without diagnosis of hypertension Will re heck dru lipid profile now Related to Mixed hyperlipidemia that he is on a different diet. Risks and benefits of new Related to Mild intermittent asthma medication discussed. start inhaled with acute exacerbation fluticasonhe through the allergy season. Will continue xarelto until Related to Other acute pulmonary October. embolism without acute cor pulmonale At the [...] dysfunction Continue atorvastatin Related to Mixed hyperlipidemia Monitor blood pressures at the Related to Elevated blood pressure pharmacy and elsewhere. reading Willhave labs done. Related to Vitamin D deficiency Will review labs. Monitor blood Related to Erectile dysfunction pressure.
--- OUTSIDE RECORDS SUMMARY | 2019-04-30 22:45 | XMS REPORT | Continuity of Care Document ---
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 Please contact [facility] practice for further details. Medications Medication Instructions [...] Providers Description For Visit Copied on Encounter 2019 - S Feb- [employer], Primary MALACHI. 33-57 Care [address] [facility] [address], [place], [address], [place], tel:+ [phone] tel: [phone] 0001 - S Feb- [employer], Primary MALACHI. 33-57 Care [address] [facility] [address], [place], [address], [place], tel: [phone] tel: [phone] 0001 - S Feb-0 [employer], Primary MALACHI. 33-57 Care [address] [facility] [address], [place], [address], [place], tel: [phone]. [phone] tel: [phone] 2019 - S Bilateral impacted Feb-0 [employer] Inc, Primary cerumenMixed MALACHI. 33-57 Care hyperlipidemiaVitamin 0 S [facility] D deficiencyElevated [address] [place] [address] blood-[facility], w/o [place], [place], diagnosis of htn [place], [address], [place], tel:[phone] tel: [phone] 0001 - S Jan-1 [employer], Primary 6-201 MALACHI. 33-57 Care [address] [place], [place], [address], [place], tel: [phone] tel: [phone] 0001 - [facility] Allergic rhinitis, Sep-3 [facility] Inc, Primary unspecifiedMild 0-201 MALACHI. 33-57 Care intermittent asthma 9 [facility] with acute [address] [place] [address] [facility] blood-pressure [place], [place], reading, without [place], [address], [place] of [place], tel: hypertensionMixed [phone]. [phone] hyperlipidemia tel: [phone] 0001 - [facility] Aug-2 [facility] [facility] Inc, Primary 9-201 MALACHI. 33- Care [address], [facility], [place], [place], [place], [address], [place], tel: [phone]. [phone] tel: [phone] 0001 - [facility] Dec-1 [facility] [facility] Inc, Primary 1-201 MALACHI. 33- Care [address], [place], [place], [address], [place], tel: [phone]. [phone] tel: [phone] 0001 - [facility] Other acute pulmonary May-1 [facility] [facility] Inc, Primary embolism without 5-201 MALACHI. 33 Care acute cor pulmonale [address], [facility], [place], [place], [place], [address], [place], tel: [phone] tel: [phone] 0001 - [facility] Other acute pulmonary Mar-2 [facility] [facility] Inc, Primary embolism without 4-201 MALACHI. 33-57 Care acute cor pulmonale [address], [place], [place], [address], [place], tel: [phone]. [phone] tel: [phone] 0001 - [facility] Nov-0 [facility] [facility], Primary 4-201 MALACHI. 33- Care [address], [place], [address], [place], tel: [phone]. [phone] tel: [phone] 0001 - [facility] May-1 [employer] [facility], Primary 2-201 MALACHI. 33-57 Care [address], [place], [address], [place], tel: [phone]. [phone] tel: [phone] 0001 - [facility] Oct-2 [facility] [facility], Primary 3-201 MALACHI. 33-57 Care [address], [place], [address], [place], tel: [phone] tel: [phone] 0001 - [facility] Mixed hyperlipidemia Chance-1 LORD ANTONIO. [facility] Inc, Primary 2-201 [place] [address] 33-57 Care 5 [place], [address]. [address], [place] tel: tel: [phone] 0001 - S Examination, routine Chance-0 [facility], Primary medicalElevated blood 5-201 MALACHI. 33-57 Care pressure readingMixed 5 [facility] hyperlipidemiaThyroid [address] [place] [address], [place], [address], [place], tel: [phone] tel: [phone] 0001 - S Left inguinal hernia Feb- [employer] [facility] Inc, Primary 4-201 MALACHI. 33-57 Care [address], [place], [address], [place], tel: [phone]. [phone] tel: [phone] 0001 - [facility] Elevated blood Nov- [facility] Inc, Primary pressure readingMixed 4-201 MALACHI. 33-57 Care hyperlipidemiaErectil 4 S [facility] e dysfunction [address] [place] [address], [place], [address], [place], tel: [phone]. [phone] tel: [phone] 0001 - [facility] Influenza Vaccine Sep- N. TIOGA [facility] Inc, Primary NURSE. . 33- Care 4 [place], [address], tel: [phone] 0001 - [facility] Mixed SKIFF [facility], Primary hyperlipidemiaCurrent MALACHI. 33- Care use of a medication [address], [place], [address], [place], tel: [phone]. [phone] tel: [phone] 0001 - [facility] Erectile [facility] Referring [facility], Primary dysfunctionElevated MALACHI. Provider: 33- Care blood pressure 4 [facility] MALACHI [facility] readingVitamin D [address] [place] [address], PC [address] [place] [address], [facility], tel: [phone], [phone]. [phone] tel: tel: [phone] 2019 - [facility] ImpetigoAllergic [facility] Referring [facility], Primary rhinitisImpetigoRhini MALACHI. Provider: Care tis, allergic NOS 1 [facility] MALACHI [address], [address], [facility] [address], [facility], tel: [phone]. [place], [phone]. [phone] tel: tel: [phone] 2019 - [facility] Sinusitis, acute LORD ALVAREZ. [facility] Inc, Primary maxillarySinusitis, [facility] 119 33-57 Care acute maxillary 1 [place], [address]. [address], [place] tel: tel: [phone] Family History Family Member Diagnosis Age At Onset Mother Hyperthyroidism Father Hyperlipidemia Father Diabetes mellitus Brother Hypertension Mother Osteoporosis Mother Cancer, uterine 73 Father Hypertension Brother Obesity Immunizations Vaccine Date Status Comments Influenza, injectable, administered Source: New Immunization quadrivalent, preservative Record free, split virus Influenza, injectable, administered Source: New Immunization quadrivalent, preservative Record free, split virus [id number] Influenza, injectable, administered Source: New Immunization quadrivalent, [...] name Insurance type Covered libertarian ID Authorization(s) [facility] [id number] [facility] [id number] [facility] [id number] [facility] [id number] [facility] [id number] [facility] [id number] Social History Type Description Quantity Date Captured [...] Referral Referred To: ordered SHELLEY WALDRON [address] [place], [address] [phone] Ordered: SHELLEY WALDRON. Genrl Surg. Consult and [...]
--- OUTSIDE RECORDS SUMMARY | 2019-04-30 22:45 | XMS REPORT | Continuity of Care Document ---
:1970 Author Organization 0001 - [employer] Address [address] [place] [address] Phone Care Team Providers Name Role Phone MALACHI GARCIA MD Unavailable Unavailable Allergies, Adverse Reactions, Alerts Substance Reaction Status peanut Anaphylaxis (severe) Active WARNIN allergy(ies) could not be collected because the type is not supported. Please contact [facility] practice for further details. Medications Medication [...] Copied on Encounter 0001 - S Feb- [employer], Primary MALACHI. 33-57 Care [address], [place], [address], [facility], tel:+ [phone] tel:+ [phone] 0001 - S Baljeet-0 [employer], Primary MALACHI. 33-57 Care [address], [place], [address], [facility], tel:[phone] tel:+ [phone] 0001 - Lab Drop Feb-0 [employer], - [facility] MALACHI. 33-57 [address], [place], [address], [facility], tel:+ [phone] tel:[phone] 0001 - S Bilateral impacted Baljeet-0 [employer], Primary cerumenMixed MALACHI. 33-57 Care hyperlipidemiaVitamin 0 S [facility] D deficiencyElevated [address] [place] [address] blood-pressure [facility], w/o [place], diagnosis of htn [place], [address], [place], tel: [phone]. [phone] tel: [phone] 0001 - [facility] Dec-1 [facility] Inc, Primary 6-201 MALACHI. 33- Care [address], [place], [place], [place], [address], [place], tel: [phone]. [phone] tel: [phone] 0001 - [facility] Allergic rhinitis, Sep-3 [facility] Inc, Primary unspecifiedMild 0-201 MALACHI. 33- Care intermittent asthma 9 S [facility] with acute [address] [place] [address] exacerbationElevated [facility] blood-pressure [place], [place], reading, without [place], [address], [place] diagnosis of [place], tel: hypertensionMixed [phone]. [phone] hyperlipidemia tel: [phone] 0001 - [facility] Aug-2 [facility] Inc, Primary 9-201 MALACHI. 33- Care [address], [place], [place], [place], [address], [place], tel: [phone]. [phone] tel: [phone] 0001 - [facility] Dec-1 [facility] Inc, Primary 1-201 MALACHI. 33- Care [address], [place], [place], [place], [address], [place], tel: [phone]. [phone] tel: [phone] 0001 - [facility] Other acute pulmonary May-1 [facility] Inc, Primary embolism without 5-201 MALACHI. 33- Care acute cor pulmonale [address], [facility], [place], [place], [place], [address], [place], tel: [phone]. [phone] tel: [phone] 0001 - [facility] Other acute pulmonary Mar-2 [facility] Inc, Primary embolism without 4-201 MALACHI. 33- Care acute cor pulmonale 7 S PC [facility] [place] [address] [place], [place], [place], [address], [place], tel: [phone]. [phone] tel: [phone] 0001 - S Nov-0 [facility] Inc, Primary 4-201 MALACHI. 33-57 Care [address], [place], [address], [place], tel: [phone]. [phone] tel: [phone] 0001 - S May-1 [facility] [facility] Inc, Primary 2-201 MALACHI. 33-57 Care [address], [place], [address], [place], tel: [phone]. [phone] tel: [phone] 0001 - S Baljeet-1 [facility] [facility] Inc, Primary 2-201 MALACHI. 33-57 Care [address], [place], [address], [place], tel: [phone]. [phone] tel: [phone] 0001 - S Oct-2 [facility] [facility] Inc, Primary 3-201 MALACHI. 33-57 Care [address], [place], [address], [place], tel: [phone]. [phone] tel: [phone] 0001 - S Mixed hyperlipidemia Chance-1 LORD ALVAREZ. [facility] Inc, Primary 2-201 [place] [address] 33-[address] [place] [address], [address]. [address], [place] tel: tel: [phone] 0001 - S Examination, routine Chance-0 [facility] Inc, Primary medicalElevated blood 5-201 MALACHI. 33-57 Care pressure readingMixed 5 [facility] hyperlipidemiaThyroid [address] [place] [address], [place], [address], [place], tel: [phone]. [phone] tel: [phone] 0001 - [facility] Left inguinal hernia Feb- [facility] Inc, Primary 4- MALACHI. 33-57 Care [address], [place], [address], [place], tel: [phone]. [phone] tel: [phone] 0001 - S Elevated blood Nov- [facility] Inc, Primary pressure readingMixed 4- MALACHI. 33-57 Care hyperlipidemiaErectil 4 [facility] e dysfunction [address] [place] [address], [place], [address], [place], tel: [phone]. [phone] tel: [phone] 0001 - [facility] Influenza Vaccine Sep-2 N. TIOGA [facility], Primary 6 NURSE. . 33-57 Care 4 [place], [place], [facility], tel: [phone] 2019 - S Mixed Sep- [facility] Inc, Primary hyperlipidemiaCurrent 3- MALACHI. 33-57 Care use of a medication [address], [place], [address], [place], tel: [phone]. [phone] tel: [phone] 0001 - [facility] Erectile Aug- [facility] Referring [facility] Inc, Primary dysfunctionElevated MALACHI. Provider: 33-57 Care blood pressure 4 [facility] MALACHI [facility] readingVitamin D [address] [place] [address], PC [address] [place] [address], [facility] [address], [facility], tel: [phone]. [place], [phone]. [phone] tel: tel:[phone] 0001 - S ImpetigoAllergic Nov- [facility] Referring S Inc, Primary rhinitisImpetigoRhini 2 MALACHI. Provider: 33-57 Care tis, allergic NOS 1 [facility] [address] [facility], [facility], [facility], [facility] [address], [facility], tel: [phone], [phone]. [phone] tel: tel:[phone] 0001 - [facility] Sinusitis, acute Darion-2 LORD ANTONIO. [facility] Inc, Primary maxillarySinusitis, 6-201 [facility] 119 33-57 Care acute maxillary 1 [facility], [place], [address]. [address], tel: tel: [phone] Family History Family Member Diagnosis Age At Onset Mother Hyperthyroidism Father Hyperlipidemia Father Diabetes mellitus Brother Hypertension Mother Osteoporosis Mother Cancer, uterine 73 Father Hypertension Brother Obesity Immunizations Vaccine Date Status Comments Influenza, injectable, administered Source: New Immunization quadrivalent, preservative Record free, split virus Influenza, injectable, administered Source: New Immunization quadrivalent, preservative Record free, split virus [id number] Influenza, injectable, administered Source: New Immunization quadrivalent, [...] Insurance type Covered green party ID Authorization(s) Lia Gresham [id number] Rozina Gresham [id number] [place] Chava Gresham [id number] [facility] [facility] [id number] [place] [facility] [id number] [facility] Mp [id number] Social History Type Description Quantity Date Captured Comments Unknown Vital Signs Date / Height Weight BMI Pulse Blood Temperature Respiratory Body Head BMI Time: Rate Pressure Rate Surface Circumference percentile Area Unknown Chief Complaint And Reason For Visit No information Reason For Referral Reason For Referral Unknown Plan Of Care Date Type Action Status Referral Referred To: ordered SHELLEY WALDRON [address] [place], [address] [phone] Ordered: SHELLEY WALDRON. Genrl Surg. Consult and [...]
--- NOTE | 2019-04-30 22:49 | ED ---
Influenza-Like Illness - HPI Summary HPI Summary: 48 year old M arriving via private car to [facility] complains of nasal congestion, scratchy throat, fever, cough. Patient travels for work. Recent travel to [facility] and [place]. He was feeling well until yesterday. He developed mild nasal congestion and scratchy throat yesterday. Today he developed fever 102F and cough. Otherwise he feels well. Symptoms aggravated by nothing. Symptoms alleviated by nothing. Medications reviewed. Allergies noted. - History of Current Complaint Chief Complaint: EDFluSymptoms Time Seen by Provider: 04/30/19 22:40 Hx Obtained From: Patient Onset/Duration: Lasting Days, Still Present - Allergy/Home Medications Allergies/Adverse Reactions: Allergies Allergy/AdvReac Type Severity Reaction Status Date / Time peanuts Allergy Anaphylatic Uncoded 04/30/19 22:41 Shock tree nuts Allergy Anaphylatic Uncoded 04/30/19 22:41 Shock Home Medications: Home Medications EPINEPHrine PEN ADULT(NF) [Epipen ADULT(NF)] 0.3 mg INJ SEE INSTRUCTIONS [History Confirmed 05/06/16] Oseltamivir CAP* [Tamiflu CAP*] 75 mg PO BID #9 cap 05/06/16 [Rx] Docusate CAP* [Colace Cap*] 100 mg PO BID #20 cap 05/12/16 [Rx] Rivaroxaban TAB(*) [Xarelto 15 mg(*)] 15 mg PO BID #42 tab 05/12/16 [Rx] PMH/Surg Hx/FS Hx/Imm Hx Endocrine/Hematology History: Denies: Hx Diabetes Cardiovascular History: Denies: Hx Hypertension - [place] Respiratory History: Reports: Hx Asthma History: Denies: Hx Dialysis, Hx Renal Disease Musculoskeletal History: Denies: Hx Arthritis, Hx Osteoporosis Neurological History: Reports: Other Neuro Impairments/Disorders - syncopal episode - Cancer History Cancer Type, Location and Year: Melanoma-12yrs ago - Surgical History Surgery Procedure, Year, and Place: 2004 RIGHT INGUINAL HERNIA REPAIR [place]. 1984 EAR TUBES [place]. 1979 TONSILLECTOMY [place] Hx Anesthesia Reactions: No Infectious Disease History: No Infectious Disease History: Denies: Traveled Outside the [place] in Last 30 Days - Family History Known Family History: Positive: Other - no FHX of seizure disorders - Social History Alcohol Use: Occasionally Alcohol Amount: 2-3 DRINKS/WEEK Substance Use Type: Reports: None Hx Tobacco Use: No Smoking Status (MU): Never Smoked Tobacco Have You Smoked in the Last Year: No Review of Systems Positive: Fever Positive: Sore Throat, Other - nasal congestion Positive: Cough All Other Systems Reviewed And Are Negative: Yes Physical Exam - Summary Physical Exam Summary: Appearance: Well-appearing, Well-nourished, lying in bed comfortably Skin: Warm, dry, no obvious rash Eyes: sclera anicteric, no conjunctival pallor HENT: mucous membranes moist, pharynx appears normal Neck: Supple, nontender Respiratory: Clear to auscultation, no signs of respiratory distress Cardiovascular: Normal S1, S2. No murmurs. Normal distal pulses in tibial and radial bilaterally. Abdomen: Soft, nontender, normal active bowel sounds present Musculoskeletal: Normal, Strength/ROM Intact Neurological: A&Ox3, awake and alert, mentation is normal, speech is fluent and appropriate Psychiatric: affect is normal, does not appear anxious or depressed Triage Information Reviewed: Yes Vital Signs On Initial Exam: Initial Vitals Temp Pulse Resp BP Pulse Ox 98.9 F 113 18 171/103 97 04/30/19 22:39 04/30/19 22:39 04/30/19 22:39 04/30/19 22:39 04/30/19 22:39 Vital Signs Reviewed: Yes Procedures - Sedation Patient Received Moderate/Deep Sedation with Procedure: No Diagnostics - Vital Signs Vital Signs Temp Pulse Resp BP Pulse Ox 04/30/19 22:39 98.9 F 113 18 171/103 97 - Laboratory Result Diagrams: 04/30/19 23:20 04/30/19 23:20 Lab Statement: Any lab studies that have been ordered have been reviewed, and results considered in the medical decision making process. - Radiology CXR Radiology Interpretation Completed By: ED Physician - No acute process. Pending official report. Re-Evaluation - Re-Evaluation First Eval Re-Evaluation Time: 23:54 - patient agrees to d/c Flu Symptom Course/Dx - Course Course Of Treatment: 48 y/o M with recent travel to [facility] and [place] presents with nasal congestion and scratchy throat starting yesterday, and fever 102F and cough starting today. Physical exam unremarkable. Bloodwork results with no significant abnormalities. CXR shows no acute process. Patient tested positive for influenza. COVID19 testing collected but cancelled. Patient will be discharged home with follow up from his primary care provider. Patient was instructed to return to Emergency Department for new or worsening symptoms. Patient understands and is agreeable to this plan. - Diagnoses Provider Diagnoses: Influenza Discharge ED - Sign-Out/Discharge Documenting (check all that apply): Patient Departure - Discharge Plan Condition: Good Disposition: HOME Patient Education Materials: Influenza (ED) Referrals: Jonh CRAWFORD,Leeroy Mcclure [Primary Care Provider] - - Billing Disposition and Condition Condition: GOOD Disposition: Home - Attestation Statements Document Initiated by Mikaylaibe: Yes Documenting Scribe: Ameena Rubio Provider For Whom Marianela is Documenting (Include Credential): Jose Baltazar MD Scribe Attestation: Ameena Murcia scribed for Jose Baltazar MD on 05/02/19 at 0229. Scribe Documentation Reviewed: Yes Provider Attestation: The documentation as recorded by the Ameena yancey accurately reflects the service I personally performed and the decisions made by Jose oseguera MD Status of Scribe Document: Viewed
[2019-04-30 23:40] LABS: ABS Eosinophils 0.3 10^3/ul (0-0.6); ABS Lymphocytes 1.1 10^3/ul (1.0-4.8); ABS Neutrophils 6.4 10^3/ul (1.5-7.7); Eosinophil % 3.1 %; Hematocrit 42 % (42-52); Hemoglobin 14.6 g/dL (14.0-18.0); Lymphocyte % 12.3 %; Mean Corpuscular HGB Conc 35 g/dL (31-36); Mean Corpuscular Hemoglobin 31 pg (27-31); Mean Corpuscular Volume 89 fL (80-94); Mean Platelet Volume 8.9 fL (7.4-10.4); Platelet Count 280 10^3/uL (150-450); Red Blood Count 4.76 10^6 /uL (4.18-5.48); Red Cell Distribution Width 14 % (10-15); White Blood Count 8.8 10^3/uL (3.5-10.8)
[2019-04-30 23:46] LABS: Activated Partial Thrombo Time 36.9 seconds (26.0-38.0); INR 1.02 (0.82-1.09)
[2019-04-30 23:47] LABS: Influenza A Molecular POSITIVE (Negative)
[2019-04-30 23:55] LABS: Albumin 4.5 g/dL (3.2-5.2); Albumin/Globulin Ratio 1.6 (1-3); Calcium 9.6 mg/dL (8.6-10.3); EGFR African American 96.5 (>60); EGFR Non-African American 79.8 (>60); Globulin 2.9 g/dL (2-4); Total Bilirubin 0.4 mg/dL (0.2-1.0); Total Protein 7.4 g/dL (6.4-8.9)
[2019-04-30 23:58] LABS: Troponin I 0.01 ng/mL (<0.03)
[2019-05-01 00:04] LABS: Potassium 3.8 mmol/L (3.5-5.0)
[2019-05-01 00:10] VITALS: BP 118/72
== END 2019-05-01 00:09 | disposition home or self-care (01) ==
LOC: ED 22:30
DX: J11.1 Influenza due to unidentified influenza virus with other respiratory manifestations (principal); R09.81 Nasal congestion; J02.9 Acute pharyngitis, unspecified; R50.9 Fever, unspecified; Z91.010 Allergy to peanuts; Z20.828 Contact with and (suspected) exposure to other viral communicable diseases
CPT/HCPCS: 36415; 71045; 80053; 83605; 84484; 85025; 85610; 85730; 87040; 99283